=== PATIENT | female | born 1985 | race Caucasian/White ===

== ENCOUNTER 2017-11-02 08:27 | Day surgery (SDC) | payer OTHER ==
[~2017-11-02] VITALS: Ht 162.6 cm; Wt 78.0 kg
[~2017-11-02 08:27] MED LIST: AMOX500 PO; CETI10 PO; CITA20 PO; DIPH50 PO; TRAZ50 PO
[2017-11-02] MEDS ORDERED: NICO21TP TOP (08:46)
[2017-11-02] MEDS ORDERED: CANNIBIS (08:47)
== END 2017-11-02 12:41 | disposition home or self-care (01) ==
LOC: ORSCMMR 08:27 → ORD 10:00 → ORSCMMR 12:41
PROVIDERS: Obstetrics & Gynecology
PROC: 0UB74ZZ Excision of Bilateral Fallopian Tubes, Percutaneous Endoscopic Approach (ICD-10-PCS; principal; 2017-11-02 10:00)
DX: R10.2 Pelvic and perineal pain (principal); N94.6 Dysmenorrhea, unspecified; Z87.891 Personal history of nicotine dependence
CPT/HCPCS: 88305; J0171; J2250; J2405; J2710; J3010; J7120

== ENCOUNTER 2018-11-01 05:45 | Day surgery (SDC) | payer OTHER ==
[~2018-11-01] VITALS: Ht 162.6 cm; Wt 81.4 kg
[~2018-11-01 05:45] MED LIST changes: +CANNIBIS; +NICO21TP TOP
--- NOTE | 2018-11-01 06:40 | NUR ---
Ambulatory in Day Surgery History, Chart, Medications and Allergies reviewed before start of procedure. Lungs clear T/O to Auscultation. Patient confirms NPO status and agrees with scheduled surgery. Pre-Op teaching done. Pt verbalizes understanding.
--- NOTE | 2018-11-01 10:25 | NUR ---
PT TRANSFERRED TO UNIT VIA STRETCHER, A/0 X 4, PLEASANT/COOPERATIVE, STATES SHE FEELS "CRAMPY". POST VS COMMENCED AND STABLE. PT ORIENTED TO ROOM
--- NOTE | 2018-11-01 13:33 | NUR ---
ON REASSESSMENT, PT STATES SHE HAS PAIN AT 6-7/10 IN HER PELVIS 60 MIN AFTER PROVIDING PO ANALGESIA PER MAR. ADMINISTERED IV PAIN MEDICATION PER MAR, WILL REASSESS
--- NOTE | 2018-11-01 13:40 | NUR ---
pt states pain at 7/10, feeling slightly nauseous, no vomiting despite medicatin per sep for nausea. have medicated per sep with alternative antinausea medication
--- NOTE | 2018-11-01 15:40 | NUR ---
on reassessment, pt states she "feels much better". no n/v, pain controlled to 3-4/10
--- NOTE | 2018-11-01 18:47 | NUR ---
shift summary: post op vss and complete, pt a/0 x 4, pleasant/cooperative. pt's family in room. pt states she no longer feels nauseous following medication per mar for nausea. pt states pain controlled to her expectation via mar with PO pain medication. pt tolerated PO intake of dinner in small amounts. pt stood and took a few steps with RN at bedside, no heavy bleeding with standing. page catheter to be removed in AM, patent and draining clear yellow urine.
[2018-11-02 04:55] LABS: BASOPHILS ABSOLUTE AUTO 0.02 K/mm3 (0.00-0.23); BASOPHILS PERCENT AUTO 0 % (0-2); EOSINOPHILS ABSOLUTE AUTO 0.07 K/mm3 (0.00-0.68); EOSINOPHILS PERCENT AUTO 1 % (0-6); Hematocrit 36.5 % (33.0-51.0); IMMATURE GRAN ABSOLUTE AUTO 0.03 K/mm3 (0.00-0.10); IMMATURE GRAN PERCENT AUTO 0 % (0-1); LYMPHOCYTES ABSOLUTE AUTO 1.85 K/mm3 (0.84-5.20); LYMPHOCYTES PERCENT AUTO 22 % (21-46); MONOCYTES ABSOLUTE AUTO 0.71 K/mm3 (0.16-1.47); MONOCYTES PERCENT AUTO 8 % (4-13); Mean Corpuscular HGB 30.5 pg (26.0-34.0); Mean Corpuscular HGB Conc 32.9 g/dL (31.5-36.5); Mean Corpuscular Volume 93 fL (80-100); Mean Platelet Volume 10.4 fL (9.1-12.4); NEUTROPHILS PERCENT AUTO 69 % (41-73); Platelet Count 237 K/mm3 (150-400); RDW Coefficient Variation 12.5 % (11.7-14.2); Red Blood Cell Count 3.94 M/mm3 (3.80-5.20); White Blood Cell Count 8.58 K/mm3 (4.00-11.30)
--- NOTE | 2018-11-02 06:13 | NUR ---
SUMMARY PT VERB PO PAIN MEDS EFFECTIVE.SLEPT.TOLERATED PO FOODS AND FLUIDS. VAG SPOTTING ONLY.WILL DC ALKA.
[2018-11-02] MEDS ORDERED: IBUP800 PO (10:13)
[2018-11-02] MEDS ORDERED: Norco 5-325 Ta1 EACH PO (10:14)
[2018-11-02] MEDS ORDERED: DOCU100 PO (10:14)
[2018-11-02] MEDS ORDERED: ACET325 PO (10:14)
--- NOTE | 2018-11-02 12:30 | NUR ---
DISCHARGE PT D/C'D VIA W/C. SCRIPTS GIVEN. VOIDING WELL, PAIN TOLERABLE, PASSING GAS.
== END 2018-11-02 12:45 | disposition home or self-care (01) ==
LOC: ORSCMMR 05:45 → ORD 07:30 → ORSCMMR 07:30 → SURS 10:19 → ORSCMMR 11-02 12:45
PROVIDERS: Obstetrics & Gynecology
PROC: 0UT9FZZ Resection of Uterus, Via Natural or Artificial Opening With Percutaneous Endoscopic Assistance (ICD-10-PCS; principal; 2018-11-01 07:30)
DX: R10.2 Pelvic and perineal pain (principal); Z87.891 Personal history of nicotine dependence; N92.1 Excessive and frequent menstruation with irregular cycle
CPT/HCPCS: 36415; 85025; 88307; A9270-GY; J0690; J1100; J1885; J2250; J2270; J2405; J2704; J2765; J3010; J7030; J7120

== ENCOUNTER → 2023-07-21 | Outpatient (CLI) | payer OTHER ==
[~2023-07-21] MED LIST changes: +ACET325 PO; +DOCU100 PO; +IBUP800 PO; +Norco 5-325 Ta1 EACH PO
[2023-07-21 12:54] LABS: BASOPHILS ABSOLUTE AUTO 0.03 K/mm3 (0.00-0.23); BASOPHILS PERCENT AUTO 1 % (0-2); EOSINOPHILS ABSOLUTE AUTO 0.06 K/mm3 (0.00-0.68); EOSINOPHILS PERCENT AUTO 1 % (0-6); Hematocrit 39.3 % (33.0-51.0); Hemoglobin 13.4 g/dL (11.5-16.0); IMMATURE GRAN ABSOLUTE AUTO 0.02 K/mm3 (0.00-0.10); IMMATURE GRAN PERCENT AUTO 0 % (0-1); LYMPHOCYTES ABSOLUTE AUTO 1.23 K/mm3 (0.84-5.20); LYMPHOCYTES PERCENT AUTO 20 % (21-46); MONOCYTES ABSOLUTE AUTO 0.45 K/mm3 (0.16-1.47); MONOCYTES PERCENT AUTO 7 % (4-13); Mean Corpuscular HGB 31.2 pg (26.0-34.0); Mean Corpuscular HGB Conc 34.1 g/dL (31.5-36.5); Mean Corpuscular Volume 91 fL (80-100); Mean Platelet Volume 9.7 fL (9.1-12.4); NEUTROPHILS ABSOLUTE AUTO 4.28 K/mm3 (1.96-9.15); NEUTROPHILS PERCENT AUTO 71 % (41-73); Platelet Count 288 K/mm3 (150-400); RDW Coefficient Variation 12.6 % (11.7-14.2); RDW Standard Deviation 41.9 fL (35.1-46.3); White Blood Cell Count 6.07 K/mm3 (4.00-11.30)
[2023-07-21 13:07] LABS: Albumin/Globulin Ratio 1.1 (0.8-1.8); Bilirubin, Total 0.3 mg/dL (0.1-1.0); Creatinine, Blood 0.92 mg/dL (0.40-1.00); Globulin, Blood 3.7 g/dL (2.2-4.0); Potassium, Blood 3.5 mmol/L (3.5-5.5); Total Protein, Blood 7.7 g/dL (6.4-8.2)
== END ==
LOC: LAB 12:51 → LAB SHORT 12:51
PROVIDERS: Family Medicine
DX: R42 Dizziness and giddiness (principal)
CPT/HCPCS: 80053; 85025

== ENCOUNTER 2023-07-31 12:02 | Emergency (ER) | payer OTHER ==
[~2023-07-31] VITALS: Ht 162.6 cm; Wt 77.1 kg
[2023-07-31 12:28] LABS: BASOPHILS ABSOLUTE AUTO 0.03 K/mm3 (0.00-0.23); BASOPHILS PERCENT AUTO 1 % (0-2); EOSINOPHILS ABSOLUTE AUTO 0.07 K/mm3 (0.00-0.68); EOSINOPHILS PERCENT AUTO 1 % (0-6); Hematocrit 42.4 % (33.0-51.0); Hemoglobin 14.1 g/dL (11.5-16.0); IMMATURE GRAN ABSOLUTE AUTO 0.01 K/mm3 (0.00-0.10); IMMATURE GRAN PERCENT AUTO 0 % (0-1); LYMPHOCYTES PERCENT AUTO 24 % (21-46); MONOCYTES ABSOLUTE AUTO 0.37 K/mm3 (0.16-1.47); MONOCYTES PERCENT AUTO 8 % (4-13); Mean Corpuscular HGB 30.6 pg (26.0-34.0); Mean Corpuscular HGB Conc 33.3 g/dL (31.5-36.5); Mean Corpuscular Volume 92 fL (80-100); NEUTROPHILS ABSOLUTE AUTO 3.27 K/mm3 (1.96-9.15); NEUTROPHILS PERCENT AUTO 66 % (41-73); Platelet Count 278 K/mm3 (150-400); RDW Coefficient Variation 12.4 % (11.7-14.2); RDW Standard Deviation 41.9 fL (35.1-46.3); Red Blood Cell Count 4.61 M/mm3 (3.80-5.20); White Blood Cell Count 4.95 K/mm3 (4.00-11.30)
[2023-07-31 12:47] LABS: Albumin, Blood 4.1 g/dL (3.4-5.0); Albumin/Globulin Ratio 1.1 (0.8-1.8); Bilirubin, Total 0.5 mg/dL (0.1-1.0); Bun/Creatinine Ratio 14.5 (12.0-20.0); Calcium, Blood 9.5 mg/dL (8.5-10.1); Creatinine, Blood 0.76 mg/dL (0.40-1.00); Globulin, Blood 3.9 g/dL (2.2-4.0); Potassium, Blood 3.6 mmol/L (3.5-5.5)
[2023-07-31] MEDS ORDERED: SUMA25 PO (15:42)
[2023-07-31 15:45] VITALS: BP 112/80
== END 2023-07-31 15:58 | disposition home or self-care (01) ==
LOC: ER 12:02
PROVIDERS: Physician Assistant
DX: G43.409 Hemiplegic migraine, not intractable, without status migrainosus (principal); Z87.891 Personal history of nicotine dependence
CPT/HCPCS: 70450; 80053; 82947; 85025; 96374; 96375; 99284-25; J0780; J1100; J1200; J1885